=== PATIENT | female | born 1965 ===

== ENCOUNTER 2018-12-07 08:13 | Inpatient (IN) | payer MEDICAID ==
[2018-11-10 11:38] LABS: BASOPHILS % (AUTO) 1.2 % (0.0-2.0); EOSINOPHILS % (AUTO) 13.3 % (0.0-3.0); HEMATOCRIT 46.6 % (37.0-47.0); MEAN CORPUSCULAR VOLUME 88 FL (80-99); MONOCYTES % (AUTO) 4.5 % (1.0-10.0); NEUTROPHILS % (AUTO) 41.9 % (45.0-75.0); PLATELET COUNT 257 K/UL (150-450); RED BLOOD COUNT 5.27 M/UL (4.20-5.40); RED CELL DISTRIBUTION WIDTH 11.3 % (11.6-14.8); WHITE BLOOD COUNT 7.6 K/UL (4.8-10.8)
[2018-11-10 11:50] LABS: INR 0.9 (0.9-1.1)
[2018-11-10 11:51] LABS: ALANINE AMINOTRANSFERASE 23 U/L (12-78); ALBUMIN 4.3 G/DL (3.4-5.0); ALKALINE PHOSPHATASE 136 U/L (46-116); ANION GAP 8 mmol/L (5-15); ASPARTATE AMINO TRANSFERASE 15 U/L (15-37); BILIRUBIN,TOTAL 0.3 MG/DL (0.2-1.0); BLOOD UREA NITROGEN 10 mg/dL (7-18); CALCIUM 9.2 MG/DL (8.5-10.1); CARBON DIOXIDE 26 MMOL/L (21-32); CHLORIDE 103 MMOL/L (98-107); CREATININE 0.7 MG/DL (0.55-1.30); POTASSIUM 3.6 MMOL/L (3.5-5.1); SODIUM 137 MMOL/L (136-145)
[2018-11-10 12:09] LABS: APPEARANCE,URINE SLIGHTLY CLOUDY; BILIRUBIN, URINE NEGATIVE (NEGATIVE); COLOR,URINE PALE YELLOW; GLUCOSE, URINE (UA) NEGATIVE (NEGATIVE); KETONES,URINE NEGATIVE (NEGATIVE); LEUKOCYTE ESTERASE ,URINE 3+ (NEGATIVE); NITRITE,URINE NEGATIVE (NEGATIVE); PH,URINE 8 (4.5-8.0); PROTEIN,URINE NEGATIVE (NEGATIVE); UROBILINOGEN,URINE NORMAL MG/DL (0.0-1.0)
--- NOTE | 2018-11-10 13:41 | Diagnostic Imaging Report ---
Indication: Dyspnea Comparison: None 2 views of the chest obtained. Findings: Cardiomediastinal silhouette and pulmonary vascularity are within normal limits for age. The diaphragmatic contour is smooth and costophrenic angles are sharp. No pleural effusions are identified. The bones are unremarkable. Impression: No acute disease
--- NOTE | 2018-12-04 15:15 | Pre-op HX & Phy Repo 2 SIG ---
DATE OF ADMISSION: 12/07/2018 SCHEDULED FOR SURGERY: December 07, 2018. HISTORY OF PRESENT ILLNESS: The patient is a 53-year-old female in overall good health, who recently underwent screening mammogram. This revealed in the left breast at 3 o'clock a 2 cm architectural distortion. An ultrasound revealed in the left breast at 4 o'clock 5 cm from the nipple, an approximately 1 cm solid mass. 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 She has no prior history of breast disease and no family history of breast cancer. She is scheduled to undergo left breast partial mastectomy with preoperative needle localization and left axillary lymph node biopsy. PAST MEDICAL HISTORY/MEDICATIONS: None. ALLERGIES: None. OPERATIONS: Vaginal reconstruction and in 2000 surgery for incontinence. REVIEW OF SYSTEMS: 2, para 2, last menstrual period five years ago. PHYSICAL EXAMINATION: VITAL SIGNS: The patient is 5 foot tall, 138 pounds. Vital signs stable. HEENT: Within normal limits. LUNGS: Clear. HEART: Regular rhythm. BREASTS: Medium in size and ptotic. There are no palpable masses. There is no axillary or supraclavicular lymphadenopathy. ABDOMEN: Soft. PELVIC: Per primary care. RECTAL: Per primary care. EXTREMITIES: Without edema. NEUROLOGIC: Physiologic. 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 PLAN: Left breast partial mastectomy with preoperative needle localization and left axillary lymph node biopsy. I have had a full discussion with the patient regarding the nature of her condition, the nature of the surgery, indications, alternatives, options, and risks including bleeding, infection, injury to adjacent structures or organs, need for additional surgery based on final pathology, need for additional treatments including chemotherapy, radiation therapy, hormonal blockade based on final pathology. All questions have been answered. The patient understands and agrees to proceed. Arun Islas M.D. DR: TOÑITO/PATRICK JOB#: [id number] CC:
[2018-12-07] VITALS (15 sets, daily range): BP systolic 113–159; BP diastolic 70–97
[~2018-12-07] VITALS: Ht 154.9 cm; Wt 61.7 kg
[~2018-12-07 08:13] MED LIST: NKM
[2018-12-07 08:56] LABS: APPEARANCE,URINE CLEAR; BILIRUBIN, URINE NEGATIVE (NEGATIVE); COLOR,URINE PALE YELLOW; GLUCOSE, URINE (UA) NEGATIVE (NEGATIVE); KETONES,URINE NEGATIVE (NEGATIVE); LEUKOCYTE ESTERASE ,URINE 3+ (NEGATIVE); NITRITE,URINE NEGATIVE (NEGATIVE); PH,URINE 7 (4.5-8.0); PROTEIN,URINE NEGATIVE (NEGATIVE); UROBILINOGEN,URINE NORMAL MG/DL (0.0-1.0)
[2018-12-07] MEDS ORDERED: Lidocaine 1% Plain 30 ml INJ ONE (11:30)
[2018-12-07] MEDS ORDERED: LR 1000ml 1,000 ML IVLG SCH (11:39)
--- NOTE | 2018-12-07 11:41 | Anethesia Preoperative Eval ---
Anesthesia Pre-op PMH/ROS General Date of Evaluation: Dec 07, 2018 Time of Evaluation: 12:09 Anesthesiologist: Joshua ASA Score: ASA 3 Mallampati Score Class I : Soft palate, uvula, fauces, pillars visible Class II: Soft palate, uvula, fauces visible Class III: Soft palate, base of uvula visible Class IV: Only hard plate visible Mallampati Classification: Class II Surgeon: Janel Diagnosis: Invasive Ductal CA, L Breast Surgical Procedure: L Breast Partial Mastectomy with Lymph Node Disection Anesthesia History: none Family History: no anesthesia problems Allergies: Coded Allergies: No Known Allergies (Unverified , 12/02/18) Medications: see eMAR Patient NPO?: Yes Past Medical History Hematology/Immune: Reports: other - L Breast Invasive Ductal CA Anesthesia Pre-op Phys. Exam Physician Exam Last Vital Signs Date Time Temp Pulse Resp B/P (MAP) Pulse Ox O2 Delivery O2 Flow Rate FiO2 12/07/18 11:10 Room Air 12/07/18 11:00 97.8 72 18 120/70 98 Constitutional: NAD Neurologic: CN 2-12 intact Cardiovascular: RRR Respiratory: CTA Gastrointestinal: S/NT/ND Airway Exam Mallampati Score: Class II MO: full ROM: full Teeth: missing, intact Anesthesia Pre-op A/P Risk Assessment & Plan Assessment: ASA 3 Plan: GA Status Change Before Surgery: No Pre-Antibiotics Dru Gram Ancef IV Given Within 1 Hr of Incision: Yes Time Given: 12:21 Wiley Lewis MD Dec 07, 2018 11:41
[2018-12-07] MEDS ORDERED: Atropine Sulfate 0.4mg/ml inj IVP PRN (11:45)
[2018-12-07] MEDS ORDERED: Ketorolac 30mg Inj IV PRN ×2 (11:45)
[2018-12-07] MEDS ORDERED: Meperidine 50mg/ml Inj(FOR RIGORS ONLY) IVP PRN (11:45)
[2018-12-07] MEDS ORDERED: oxyCODONE HCL/Acetaminophen 5/325mg ORAL PRN (11:45)
[2018-12-07] MEDS ORDERED: Labetalol 5mg/ml 20ml vial IV PRN (11:45)
[2018-12-07] MEDS ORDERED: DiphenhydrAMINE 50mg/ml Inj IVP PRN (11:45)
[2018-12-07] MEDS ORDERED: HYDROcodone/Acetamin 7.5/325 tab ORAL PRN (11:45)
[2018-12-07] MEDS ORDERED: fentaNYL 100 mcg/2 mL IV PRN (11:45)
[2018-12-07] MEDS ORDERED: HYDROcodone/Acetamin 5/325 tab ORAL PRN ×2 (11:45→14:15)
[2018-12-07] MEDS ORDERED: Metoclopramide 10mg/2ml Inj IVP PRN (11:45)
[2018-12-07] MEDS ORDERED: Midazolam 2mg/2ml Inj IVP PRN (11:45)
[2018-12-07] MEDS ORDERED: Hydromorphone 0.5mg/0.5ml inj IVP PRN (11:45)
[2018-12-07] MEDS ORDERED: Acetaminophen (Non formulary) 100 ML IV ONE (11:45)
[2018-12-07] MEDS ORDERED: LORazepam Inj 2mg/ml 1ml IV PRN (11:45)
--- NOTE | 2018-12-07 11:59 | Pre-Procedure Note/Attestation ---
Pre-Procedure Note/Attestation Complete Prior to Procedure Planned Procedure: left Procedure Narrative: left breast partial mastectomy with pre-op needle localization and left axillary lymph node biopsy Indications for Procedure Pre-Operative Diagnosis: invasive ductal carcinoma left breast Attestation I attest that I discussed the nature of the procedure; its benefits; risks and complications; and alternatives (and the risks and benefits of such alternatives ), prior to the procedure, with the patient (or the patient's legal automotive leasing sales representative). I attest that, if there was a reasonable possibility of needing a blood transfusion, the patient (or the patient's legal automotive leasing sales representative) was given the [facility] standardized written summary, pursuant to the Tray [place] Blood Safety Act ([place] Health and Safety Code # 1645, as amended). I attest that I re-evaluated the patient just prior to the surgery and that there has been no change in the patient's H&P, except as documented below: none Arun Islas MD Dec 07, 2018 11:59
[2018-12-07] MEDS ORDERED: Sterile Water Irrig 1000ml IRRIG ONE (12:00)
[2018-12-07] MEDS ORDERED: LR 1000ml ONE (12:00)
[2018-12-07] MEDS ORDERED: Propofol 200mg/20ml IV ONE (12:00)
[2018-12-07] MEDS ORDERED: Lidocaine 1% MPF 10mg/ml 5ml ONE (12:01)
[2018-12-07] MEDS ORDERED: Dexamethasone 4mg/ml vial ONE (12:01)
[2018-12-07] MEDS ORDERED: Sodium Chloride 10ml vial INJ ONE (12:01)
[2018-12-07] MEDS ORDERED: fentaNYL 100 mcg/2 mL IV ONE (12:07)
[2018-12-07] MEDS ORDERED: Bacitracin 50000 Units Vial ONE (12:09)
--- NOTE | 2018-12-07 12:37 | Immediate Post-Op Evaluation ---
Immediate Post-Op Evalulation Immediate Post-Op Evalulation Procedure: L Breast Partial Mastectomy with Lymph Node Disection Date of Evaluation: Dec 07, 2018 Time of Evaluation: 14:15 IV Fluids: 800 LR Blood Products: 0 Estimated Blood Loss: 25 Urinary Output: 0 Blood Pressure Systolic: 142 Blood Pressure Diastolic: 77 Pulse Rate: 77 Respiratory Rate: 16 O2 Sat by Pulse Oximetry: 100 Temperature (Fahrenheit): 97.2 Pain Score (1-10): 2 Nausea: No Vomiting: No Complications 0 Patient Status: awake, reacts, patent, extubated, none Hydration Status: adequate Dru Gram Ancef IV Given Within 1 Hr of Incision: Yes Time Given: 12:21 Wiley Lewis MD Dec 07, 2018 12:37
--- NOTE | 2018-12-07 14:09 | Brief Operative Note ---
Immediate Post Operative Note Operative Note Pre-op Diagnosis: invasive ductal carcinoma left breast Procedure: left breast partial mastectomy with pre-op needle localization and left axillary lymph node biopsy Post-op Diagnosis: same Findings: consistent w/pre-op dx studies Surgeon: jayashree Anesthesia: general Specimen: yes - left breast tissue and left axillary lymph nodes Complications: none Condition: stable Fluids: see anesthesia record Estimated Blood Loss: minimal Drains: LUKE Implant(s) used?: No Arun Islas MD Dec 07, 2018 14:09
[2018-12-07] MEDS ORDERED: HYDROmorphone 1mg/ml Carpuject SUBQ PRN (14:15)
--- NOTE | 2018-12-07 15:15 | NUR ---
NURSE NOTES: Received pt from [employer]. Pt. a/o x 4, Occitan speaking. Left breast surgical site dressing is C/D/I. Denies any pain at this time. J/P drainage catheter in placed, serosanguineous noted. Right hand IV site is patent. Unit orientation was given. Bed in lowest position, call light within reach. Will continue to monitor.
[2018-12-07] MEDS: D5 1/2NS w/KCl 20mEq 1,000 ML IV SCH (16:53)
--- NOTE | 2018-12-07 18:00 | NUR ---
NURSE NOTES: Instruction for caring of LUKE drain was given to pt/. 2 page of instruction paper was given. Verbalized understanding.
--- NOTE | 2018-12-07 18:35 | NUR ---
NURSE NOTES: Pt is awake and alert. Offered ambulation with assist and pt refused. Pt said she wants to ambulate around 8 or 9 pm. Will endorse to in school suspension aide nurse.
--- NOTE | 2018-12-07 19:00 | Operative Note - Dictated ---
DATE OF OPERATION: 12/07/2018 SURGEON: Arun Islas M.D. OPTICIAN APPRENTICE: None. ANESTHESIOLOGIST: Wiley Lewis M.D. TYPE OF ANESTHESIA: General. PREOPERATIVE DIAGNOSIS: Invasive ductal carcinoma, left breast. POSTOPERATIVE DIAGNOSIS: Invasive ductal carcinoma, left breast. OPERATION PERFORMED: Left breast partial mastectomy with preoperative needle localization and left axillary lymph node biopsy. DESCRIPTION OF PROCEDURE: The patient was taken to the operating room and under general anesthesia with sequential compression device stockings in place, she was prepped and draped in usual fashion. The lesion was located in the outer left breast at 3 to 4 o'clock approximately 5 cm from the nipple. Radial incision was made transversely dissecting flaps circumferentially. The appropriate sector of breast tissue was resected and specimen radiograph confirmed the presence of the lesion. Pathology evaluation revealed the lesion to be close and the inferior posterior margin and additional tissue was taken to clear this margin. The field was irrigated and hemostasis carefully achieved with cautery. After ascertaining the hemostasis was secured, incision was closed with interrupted 3-0 Vicryl deep dermal subcutaneous sutures followed by continuous 4-0 Monocryl subcuticular suture. A vertical left axillary incision was made achieving hemostasis with cautery and incising the clavipectoral fascia. The lower level lymph nodes were evident and were resected using the Thunderbeat electrosurgical device. Pathology confirmed the presence of at least 3 lymph nodes. They did not look suspicious. Through a separate incision inferolaterally, a large flat Raymon-Avalos was placed into the axilla and sutured to the skin with 2-0 nylon suture. The clavipectoral fascia was closed with an interrupted 3-0 Vicryl. The subcutaneous tissues closed with interrupted 3-0 Vicryl and the skin closed with continuous 4-0 Monocryl subcuticular suture. Tincture of benzoin and half-inch Steri-Strips were applied to both incisions followed by dry sterile dressings. Final sponge and needle counts were correct. A post surgical brassiere was applied. The patient tolerated the procedure well and left the operating room in good condition. Arun Islas M.D. DR: Cristina JOB#: [id number] CC:
--- NOTE | 2018-12-07 19:24 | NUR ---
HAND-OFF: Report given to Harry Leon RN. Patient is stable. Endorsed ambulation today when pt awake and alert, I/S at bedside teaching.
--- NOTE | 2018-12-07 20:00 | NUR ---
NURSE NOTES: Patient in bed awake and oriented. Dressing clean and dry. No pain at this time. Nausea and vomiting noted. Nursing teaching done about small frequent meals. PRN zofran offered but per patient she felt much better. No signs of bleeding noted. IS at bedside. IV site intact. In stable condition.
[2018-12-07] MEDS: ceFAZolin sod 1 GM in D5W 55 ML IV SCH (20:26)
[2018-12-08] VITALS: BP 118/67
[2018-12-08] MEDS: D5 1/2NS w/KCl 20mEq 1,000 ML IV SCH ×2 (02:05→12:00)
--- NOTE | 2018-12-08 04:30 | NUR ---
NURSE NOTES: Patient ambulated in the hallway x2 with RN assist. IS use encouraged. No N&V. In stable condition.
[2018-12-08] MEDS: ceFAZolin sod 1 GM in D5W 55 ML IV SCH (04:52)
[2018-12-08 04:56] VITALS: BP 91/58
--- NOTE | 2018-12-08 07:02 | 48 Hour Post Anesthesia Eval ---
Post Anesthesia Evaluation Procedure: L Breast Partial Mastectomy with Lymph Node Disection Date of Evaluation: Dec 08, 2018 Time of Evaluation: 07:01 Blood Pressure Systolic: 91 0: 56 Pulse Rate: 70 Respiratory Rate: 17 Temperature (Fahrenheit): 98.3 O2 Sat by Pulse Oximetry: 97 Airway: patent Nausea: No Vomiting: No Pain Intensity: 2 Hydration Status: adequate Cardiopulmonary Status: Stable Mental Status/LOC: patient returned to baseline Follow-up Care/Observations: 0 Post-Anesthesia Complications: 0 Follow-up care needed: ready to discharge Wiley Lewis MD Dec 08, 2018 07:02
--- NOTE | 2018-12-08 07:39 | NUR ---
NURSE NOTES: AWAKE/ALERT.PAIN SCALE 5/10. LEFT BREAST DRESSING DRY AND INTACT WITH SURGICAL BRA ON. LUKE IN PLACE WITH VERY MINIMAL DRAINAGE. IN NO ACUTE DISTRESS.ENCOURAGED TO DO DEEP BREATHING AND USE OF INCENTIVE SPIROMETER.
--- NOTE | 2018-12-08 07:58 | NUR ---
NURSE NOTES: PT SHOWED AND INSTRUCTED HOW TO EMPTY LUKE AND RECORD OUTPUT. UNDERSTOOD INSTRUCTIONS.
[2018-12-08 08:00] VITALS: BP 105/62
[2018-12-08 12:00] VITALS: BP 98/63
--- NOTE | 2018-12-08 12:58 | General Progress Note ---
Progress Note Progress Note AVSS Had nausea and emesis yesterday and required Dilaudid, but this AM ambulating and eating and taking [place] prn Left breast and axilla incisions clean with intact steristrips LUKE 18cc serosang Imp. Doing Well Plan: Discharge Rx [place] #30 F/U office 12/14 Instructions/limitations/supplies provided/discussed Arun Islas MD Dec 08, 2018 12:58
[2018-12-08] MEDS ORDERED: NORCO 5-325 TA1 EACH ORAL (13:05)
--- NOTE | 2018-12-08 13:24 | NUR ---
NURSE NOTES: DISCHARGED HOME PER WHEELCHAIR ACCPD BY IN STABLE CONDITION. DC INSTRUCTIONS AND RX GIVEN.
[2018-12-08] MEDS ORDERED: Tubing IV Secondary IV ONE (13:26)
--- NOTE | 2018-12-08 15:50 | NUR ---
REVERSING MILL ROLLERLICENSED WEIGHER 53 Y/O FEMALE CAME TO [facility] FOR ELECTIVE SURGERY CC:LEFT BREAST MASTECTOMY SI:L BREAST MASTECTOMY w/LYMPH NODE DISSECTION VS: BP120/70, P 72, T 97.8, RR 18, SpO2 98 ALP 136, TOTAL PROTEIN 8.5 IS:CEFAZOLIN 55ml IV DILAUDID 1mg SUBQ ZOFRAN 4mg IVP ADMITTED TO MED/SURG
--- NOTE | 2018-12-09 13:36 | Discharge Summary ---
Discharge Summary Hospital Course Date of Admission Dec 07, 2018 at 14:07 Date of Discharge Dec 08, 2018 at 13:27 Admitting Diagnosis Invasive ductal carcinoma, left breast Reason for Hospitalization: elective surgery HPI Genevieve Baird is a 53 year old female who was admitted on Dec 07, 2018 at 14:07 for Invasive ductal carcinoma, left breast. Patient was admitted for elective surgery. Procedures s/p 12/07/[address] Islas Left breast partial mastectomy with preoperative needle localization and left axillary lymph node biopsy. Hospital Course s/p surgery course of recovery uneventful initially IV fluids s/p perioperative antibiotics one episode of nausea and vomiting antiemetic provided as needed Left axilla and breast incisions clean with intact Steri-Strips pain management addressed ; pain controlled LUKE drain with 18 cc of serosanguineous drainage patient remain hemodynamically stable ambulated freely tolerated diet , IV fluids discontinued voided freely bowel regimen instituted teaching regarding LUKE drain emptying and care provided prescription for Bow provided discharge instructions/limitations/supplies provided/discussed follow up with surgeon on 12/14 , f/up with pathology report FINAL DIAGNOSES Invasive ductal carcinoma, 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 s/p Left breast partial mastectomy with preoperative needle localization and left axillary lymph node biopsy. Discharge Medications Continued Medications: Hydrocodone Bit/Acetaminophen 5-325* (Bow 5-325*) 1 Each Tablet 1 TAB ORAL Q4H PRN for For Pain, #30 TAB 0 Refills (This prescription has been renewed) Discharge Condition Upon Discharge: stable Discharge Disposition Patient was discharged home Discharge Instructions Discharge Instructions Special Instructions I have been assigned to complete a D/C Summary on this account. I was not involved in the patient management Catina Hearn NP Dec 09, 2018 13:36
== END 2018-12-08 13:27 | disposition home or self-care (01) | DRG 363 ==
LOC: SUR 08:13 → 3E 14:07 → SUR 15:15 → 3E 15:15
PROC: 07T60ZZ Resection of Left Axillary Lymphatic, Open Approach (ICD-10-PCS; 2018-12-07)
PROC: 0HBU0ZZ Excision of Left Breast, Open Approach (ICD-10-PCS; principal; 2018-12-07 13:00)
DX: C50.512 Malignant neoplasm of lower-outer quadrant of left female breast (principal); R11.2 Nausea with vomiting, unspecified
CPT/HCPCS: 36415; 71046; 80053; 81001; 81003; 85025; 85610; 85730; 87081; 93005; 94003; 94150; J2405